=== PATIENT | male | born 1985 | race Caucasian/White ===

== ENCOUNTER 2020-12-12 12:44 | Emergency (ER) | payer OTHER, SELFPAY ==
--- NOTE | 2020-12-12 12:52 | ED.DIZZY ---
HPI - Dizziness General Chief Complaint: Dizziness Stated Complaint: Dizzy Time Seen by Provider: 12/12/20 12:52 Source: patient and RN notes reviewed History of Present Illness HPI Narrative: Patient is a 35-year-old male who presents the urgent care with complaints of intermittent dizziness for the last 4 years. Patient states that he feels like the room is spinning . Patient states that it is not all the time but tends to be from laying or sitting or standing positions. Patient also reports of intermittent pain under the left arm that comes and goes. Denies any chest pain or shortness of breath. Denies of any recent illness or sickness. States that he follows a normal diet and denies any recent fasting. Denies of headaches or changes in vision. States that he is called his primary doctor and was scheduled for January 06 however told him to go to the emergency room for his current complaint. Denies of any new medications. No other acute complaints. No acute distress noted. Patient aware of the plan of care. Some parts of this dictation were generated by voice recognition software and may contain typographical and/or grammatical inaccuracies. Related Data Home Medications Medication Instructions Recorded Confirmed albuterol sulfate INHALATION 12/12/20 alprazolam 12/12/20 [id number]-[id number] tablet 12/12/20 ergocalciferol (vitamin D2) 12/12/20 Allergies Allergy/AdvReac Type Severity Reaction Status Date / Time tramadol Allergy Severe Hives / Verified 09/02/18 10:40 Red Face Review of Systems Review of Systems: Narrative: CONSTITUTIONAL: Denies fever, chills, or sweats. EYES: Denies visual changes, redness, or discharge. ENT: Denies rhinorrhea, congestion, sore throat, or otalgia. CARDIOVASCULAR: Denies chest pain, palpitations, or edema. RESPIRATORY: Denies cough or dyspnea. GASTROINTESTINAL: Denies abdominal pain, nausea, vomiting, or diarrhea. GENITOURINARY: Denies dysuria or hematuria. SKIN: Denies rash or itching. MUSCULOSKELETAL: Denies back pain, joint pain, or myalgia. NEUROLOGIC: Reports of intermittent dizziness without numbness, weakness or headache All other systems reviewed are negative, except as documented in HPI. PMFSH Comments At the time of my signature, I reviewed and agree with the nursing past medical, surgical, social, and family history. There is no relevant family history pertinent to the patient complaint. Exam Narrative: Exam Narrative: GENERAL: This is a well-nourished, well-developed patient, in no apparent distress. Appears very anxious HEAD: normocephalic, atraumatic. EYES: PERRL. Sclera clear/white. Vision is grossly intact. EARS: External ears normal, auditory canals clear and without drainage, TMs normal without perforation. Hearing grossly intact. NOSE: External nose normal with no obvious nasal discharge, nares without redness, no rhinorrhea. THROAT: Mucous membranes moist, posterior pharynx clear. NECK: Neck supple CARDIOVASCULAR: Regular rate and rhythm without murmurs, gallops, or rubs. RESPIRATORY: Clear to auscultation. Breath sounds equal bilaterally. No wheezes, rales, or rhonchi. SKIN: warm, intact with no suspicious lesions or rash, good texture and turgor. NEURO: awake, alert, and oriented to person, place and time. There were no obvious focal neurologic abnormalities. EXTREMITIES: No clubbing, cyanosis, or edema. Course Vital Signs Vital signs: Vital Signs Temperature 97.5 F L 12/12/20 12:55 Pulse Rate 82 12/12/20 12:55 Respiratory Rate 16 12/12/20 12:55 Blood Pressure 124/94 H 12/12/20 12:55 Pulse Oximetry 99 12/12/20 12:55 Temperature 97.5 F L 12/12/20 12:55 Pulse Rate 82 12/12/20 12:55 Respiratory Rate 16 12/12/20 12:55 Blood Pressure 124/94 H 12/12/20 12:55 Pulse Oximetry 99 12/12/20 12:55 Reviewed-patient is informed that they may have pre-hypertension or hypertension based on a blood pressure reading
[2020-12-12 12:55] VITALS: BP 124/94; PULSE 82; RESP 16; TEMP 36.4; O2SAT 99
--- NOTE | 2020-12-12 13:06 | ECG_ITS ---
Measurements Intervals [place] Rate: 77 P: 59 LA: 154 QRS: 32 QRSD: 90 T: 48 QT: 377 QTc: 427 Interpretive Statements SINUS RHYTHM BASELINE ARTIFACT- II, III, AVF NORMAL ECG Electronically Signed On 12-12-2020 13:13:27 CDT by Rip Shell D.O.
[2020-12-14 08:04] LABS: Glucose Point of Care 108 mg/dl (65-105)
== END 2020-12-12 13:20 | disposition home or self-care (01) ==
PROVIDERS: Emergency Provider Nurse Practitioner Family
DX: R42 Dizziness and giddiness (principal); Z21 Asymptomatic human immunodeficiency virus [HIV] infection status
CPT/HCPCS: 82948; 93005; 99213; G0463

== ENCOUNTER 2022-10-27 11:23 | Emergency (ER) | payer OTHER, SELFPAY ==
[2022-10-27 11:32] VITALS: BP 145/87; PULSE 71; RESP 16; TEMP 37.1; O2SAT 99
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
[2022-10-27] MEDS: SILVER SULFADIAZINE 1% CR 50 GM JAR (*BKC) 1 APPLIC TOPICAL (12:42)
[2022-10-27] MEDS: TETANUS,DIPHTHERIA,AC PERTUSSIS ADULT (0.5 ML) BOOSTRIX IM (12:46)
== END 2022-10-27 12:47 | disposition home or self-care (01) ==
PROVIDERS: Emergency Provider Registered Nurse
DX: T25.222A Burn of second degree of left foot, initial encounter (principal); X03.8XXA Other exposure to controlled fire, not in building or structure, initial encounter; Z23 Encounter for immunization; J45.909 Unspecified asthma, uncomplicated; F17.210 Nicotine dependence, cigarettes, uncomplicated; Z21 Asymptomatic human immunodeficiency virus [HIV] infection status
CPT/HCPCS: 90471; 90715; 99213; A9270; G0463

== ENCOUNTER 2023-07-09 15:46 | Emergency (ER) | payer OTHER, SELFPAY ==
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
--- NOTE | ~2023-07-09 | XR_ITS ---
EXAMINATION: XR hip RT 2V w AP pelvis INDICATION: Right hip pain TECHNIQUE: AP view of the pelvis and two views of the right hip are obtained. COMPARISON: CT, 05/22/2018 FINDINGS: Bone alignment is normal. There is no fracture. There are phleboliths of the pelvis. IMPRESSION: 1. No acute osseous abnormality. Reviewed, dictated and finalized at location L. [facility]
[2023-07-09 16:01] VITALS: BP 128/89; PULSE 93; RESP 20; TEMP 37.2; O2SAT 99
[2023-07-09 16:07] VITALS: BP 128/89; PULSE 93; RESP 20; TEMP 37.2; O2SAT 99
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
== END 2023-07-09 17:11 | disposition home or self-care (01) ==
PROVIDERS: Emergency Provider Nurse Practitioner
DX: S39.012A Strain of muscle, fascia and tendon of lower back, initial encounter (principal); V43.52XA Car driver injured in collision with other type car in traffic accident, initial encounter; M25.551 Pain in right hip; F17.200 Nicotine dependence, unspecified, uncomplicated; J45.909 Unspecified asthma, uncomplicated; Z21 Asymptomatic human immunodeficiency virus [HIV] infection status; F41.9 Anxiety disorder, unspecified; F32.A Depression, unspecified
CPT/HCPCS: 72100; 73502; 99214; G0463

== ENCOUNTER 2023-11-20 14:18 | Emergency (ER) | payer OTHER, SELFPAY ==
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
[2023-11-20 14:28] VITALS: BP 127/83; PULSE 77; RESP 16; TEMP 36.8; O2SAT 99
[2023-11-20 14:30] VITALS: BP 127/83; PULSE 77; RESP 16; TEMP 36.8; O2SAT 99
== END 2023-11-20 15:12 | disposition short-term general hospital (02) ==
PROVIDERS: Emergency Provider Nurse Practitioner Family
DX: R07.81 Pleurodynia (principal); H11.32 Conjunctival hemorrhage, left eye; H57.12 Ocular pain, left eye; Y04.2XXA Assault by strike against or bumped into by another person, initial encounter; J45.909 Unspecified asthma, uncomplicated; F32.A Depression, unspecified; Z21 Asymptomatic human immunodeficiency virus [HIV] infection status; F17.200 Nicotine dependence, unspecified, uncomplicated
CPT/HCPCS: 71101; 99212; A9270; G0463